=== PATIENT | female | born 1985 | race Caucasian/White ===

== ENCOUNTER 2021-06-08 20:56 | Emergency (ER) | payer MEDICAID, OTHER ==
[2021-06-08] MEDS ORDERED: Amoxicillin 500 MG Cap PO ONE (21:39)
--- NOTE | 2021-06-08 21:43 | EDM.PDOC ---
ED HPI GENERAL MEDICAL PROBLEM - General Chief Complaint: General Stated Complaint: EAR ACHE WITH DRAINAGE Time Seen by Provider: 06/08/21 21:10 Source of Information: Reports: Patient History Limitations: Reports: No Limitations - History of Present Illness INITIAL COMMENTS - FREE TEXT/NARRATIVE: 36-year-old female presents to the emergency room with complaints of left ear pain severe and mild right earache. Symptoms began on Saturday. Patient has been experiencing a dry cough and runny nose mild sore throat. Experiencing some postnasal drainage and hoarseness. No fever or chills. No chest congestion. She lives in [place], primary care is in [facility] in [place]. Onset: Gradual Onset Date: 06/06/21 Duration: Day(s):, Getting Worse Location: Reports: Other (left ear) Quality: Reports: Ache Severity: Moderate Improves with: Reports: None Worsens with: Reports: None Associated Symptoms: Reports: Cough, Other (Runny nose and sore throat). 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: Psychiatric History: Reports: Anxiety, Depression Endocrine/Metabolic History: Reports: Hypothyroidism - Infectious Disease History Infectious Disease History: Reports: Chicken Pox, Influenza - Past Surgical History Other HEENT Surgeries/Procedures: wisdom teeth out Social & Family History - Tobacco Use Tobacco Use Status *Q: Never Tobacco User - Caffeine Use Caffeine Use: Reports: Coffee, Energy Drinks, Soda, Tea - Recreational Drug Use Recreational Drug Type: Reports: Other (see below) Other Recreational Drug Type: Delta 8 Recreational Drug Use Frequency: Rarely ED ROS GENERAL - Review of Systems Review Of Systems: See Below Constitutional: Denies: Fever, Chills HEENT: Reports: Ear Pain (Left ear), Rhinitis, Throat Pain. Denies: Eye Pain, Nose Pain Respiratory: Denies: Shortness of Breath Cardiovascular: Denies: Chest Pain Endocrine: Reports: No Symptoms GI/Abdominal: Reports: No Symptoms : Reports: No Symptoms Musculoskeletal: Denies: Neck Pain Skin: Reports: No Symptoms Neurological: Reports: No Symptoms Psychiatric: Reports: No Symptoms Hematologic/Lymphatic: Reports: No Symptoms Immunologic: Reports: No Symptoms ED EXAM, GENERAL - Physical Exam Exam: See Below Exam Limited By: No Limitations General Appearance: Alert, WD/WN, No Apparent Distress Eye Exam: Bilateral Eye: EOMI, PERRL (Pupils equal) Ears: Normal External Exam, Normal Canal, Hearing Grossly Normal Ear Exam: Right Ear: TM Red, Left Ear: Tenderness, TM Dull, TM Bulging Nose: Normal Inspection, Clear Rhinorrhea Throat/Mouth: Normal Inspection, Normal Lips, Normal Oropharynx, No Airway Compromise. No: Inflammation Head: Atraumatic, Normocephalic Neck: Normal Inspection, Supple, Non-Tender, Full Range of Motion. No: Lymphadenopathy (L), Lymphadenopathy (R) Respiratory/Chest: No Respiratory Distress, Lungs Clear, Normal Breath Sounds, No Accessory Muscle Use, Chest Non-Tender Cardiovascular: Normal Peripheral Pulses, Regular Rate, Rhythm, No Murmur Back Exam: Normal Inspection Extremities: Normal Inspection Neurological: Alert, Oriented, No Motor/Sensory Deficits Psychiatric: Normal Affect, Normal Mood Skin Exam: Warm, Dry, Intact, Normal Color, No Rash Lymphatic: No Adenopathy Course - Vital Signs Last Recorded V/S: Last Vital Signs Temp 97.4 F 06/08/21 21:08 Pulse 115 H 06/08/21 21:08 Resp 18 06/08/21 21:08 BP 120/83 06/08/21 21:08 Pulse Ox 97 06/08/21 21:08 - Re-Assessments/Exams Free Text/Narrative Re-Assessment/Exam: 06/08/21 21:47 Patient cooperative throughout exam no acute distress. Indication show acute otitis media left ear Departure - Departure Time of Disposition: 21:48 Disposition: Home, Self-Care 01 Condition: Good Clinical Impression: Acute otitis media Qualifiers: Otitis media type: serous Laterality: left Recurrence: not specified as recurrent Qualified Code(s): H65.02 - Acute serous otitis media, left ear - Discharge Information Instructions: Otitis Media, Adult, [id number] Referrals: Grisel Benton MD [Primary Care Provider] - Forms: ED Department Discharge Care Plan Goals: 1. Amoxicillin 500 mg twice daily for 7 days 2. Tylenol 500 mg every 4-6 hours as needed for pain 3. Ibuprofen 800 mg every 8 hours as needed for pain inflammation 4. Encourage drinking plenty of fluids during this time including rest.. 5. Follow-up with your primary care in a week to 10 days if symptoms are not significantly improving. Sepsis Event Note (ED) - Evaluation Sepsis Screening Result: No Definite Risk - Focused Exam Vital Signs: Vital Signs Temp Pulse Resp BP Pulse Ox 06/08/21 21:08 97.4 F 115 H 18 120/83 97 - Assessment/Plan Assessment:: Acute otitis media left Rhinitis Cough Plan: 1. Amoxicillin 500 mg twice daily for 7 days 2. Tylenol 500 mg every 4-6 hours as needed for pain 3. Ibuprofen 800 mg every 8 hours as needed for pain inflammation 4. Encourage drinking plenty of fluids during this time including rest.. 5. Follow-up with your primary care in a week to 10 days if symptoms are not significantly improving.
== END 2021-06-08 21:50 | disposition home or self-care (01) ==
LOC: KA.ED 20:56
DX: H65.02 Acute serous otitis media, left ear (principal); E03.9 Hypothyroidism, unspecified; I10 Essential (primary) hypertension; Z79.899 Other long term (current) drug therapy
CPT/HCPCS: 99283; A9270-GY